=== PATIENT | female | born 1950 | race Caucasian/White ===

== ENCOUNTER → 2016-12-14 | Outpatient (CLI) | payer MEDICARE ==
--- NOTE | 2016-12-15 09:46 | MM ---
Reason for exam: screening (asymptomatic). Last mammogram was performed 2 years and 7 months ago. History: Patient is postmenopausal and is nulliparous. Took estrogen for 5 years. Physical Findings: A clinical breast exam by your physician is recommended on an annual basis and results should be correlated with mammographic findings. MG 3D Screening Mammo W/Cad Bilateral CC and MLO view(s) were taken. Prior study comparison: May 07, 2014, bilateral MG screening mammo w CAD. April 27, 2008, bilateral digital screening mammogram. The breast tissue is heterogeneously dense. This may lower the sensitivity of mammography. A 6mm asymmetry in the central retroareolar right breast on 2D/3D views possible in outer quadrant. ASSESSMENT: Incomplete: need additional imaging evaluation, BI-RAD 0 RECOMMENDATION: Special view mammogram of the right breast. If lesion persists on supplemental views, image directed ultrasound is recommended. [facility] will attempt to contact patient to return for supplemental views and ultrasound if indicated.
== END | disposition home or self-care (01) ==
LOC: RADMAMWWP 16:44
PROVIDERS: ATTEND Family Medicine
DX: Z12.31 Encounter for screening mammogram for malignant neoplasm of breast (principal)
CPT/HCPCS: 77063; G0202

== ENCOUNTER → 2016-12-20 | Outpatient (CLI) | payer MEDICARE ==
--- NOTE | 2016-12-20 11:40 | MM ---
Reason for exam: additional evaluation requested from abnormal screening. Last mammogram was performed less than 1 month ago. History: Patient is postmenopausal and is nulliparous. Took estrogen for 5 years. Physical Findings: Nurse did not find any significant physical abnormalities on exam. MG 3D Work Up W/Cad RT CC, MLO, LM, spot compression CC, and spot compression MLO view(s) were taken of the right breast. Prior study comparison: December 14, 2016, bilateral MG 3d screening mammo w/cad. May 07, 2014, bilateral MG screening mammo w CAD. The breast tissue is heterogeneously dense. This may lower the sensitivity of mammography. The previously seen abnormality appears as fibroglandular tissue. These results were verbally communicated with the patient and result sheet given to the patient on 12/20/16. ASSESSMENT: Benign, BI-RAD 2 RECOMMENDATION: Routine screening mammogram of both breasts in 1 year.
== END | disposition home or self-care (01) ==
LOC: RADMAMWWP 10:43
PROVIDERS: ATTEND Family Medicine
DX: R92.8 Other abnormal and inconclusive findings on diagnostic imaging of breast (principal)
CPT/HCPCS: G0206; G0279

== ENCOUNTER 2020-03-04 17:00 | Emergency (ER) | payer MEDICARE ==
[2020-03-04] MEDS ORDERED: KETOROLAC 15 MG/ML 1 ML VIAL IM STA (18:37)
--- NOTE | 2020-03-04 18:47 | ED ---
Fall HPI - General Source: patient Mode of arrival: wheelchair <Micaela Haley - Last Filed: 03/04/20 19:40> <Lobo Rhodes - Last Filed: 03/04/20 19:50> - General Chief Complaint: Fall Stated Complaint: Fall, back injury/left side Time Seen by Provider: 03/04/20 18:28 - History of Present Illness Initial Comments: Patient is a 69-year-old female presenting to the emergency department with complaints of left-sided back and side pain after falling about 3 hours prior to arrival. Patient states she was outside and she tripped and fell backwards into the edge of a tractor. Patient is complaining of pain in her left mid back, left side of her ribs. Patient states she has pain with movement, deep breaths. Patient denies any trouble breathing at this time, she denies hitting her head. She denies being on a blood thinner. She denies any neck pain, abdominal pain, nausea, vomiting. She denies any previous injuries to her back or previous surgeries. She denies any numbness and tingling into her lower extremities, denies bowel or bladder incontinence. She has no further complaints at this time. (Micaela Haley) - Related Data Previous Rx's Medication Instructions Recorded Lidocaine 5% Patch [Lidoderm 5% 1 patch TOPICAL DAILY #7 patch 03/04/20 Patch] Allergies Allergy/AdvReac Type Severity Reaction Status Date / Time doxycycline Allergy Unknown Verified 03/04/20 19:15 erythromycin base Allergy Unknown Verified 03/04/20 19:15 Review of Systems ROS Other: All systems not noted in ROS Statement are negative. <Micaela Haley - Last Filed: 03/04/20 19:40> ROS Other: All systems not noted in ROS Statement are negative. <Lobo Rhodes - Last Filed: 03/04/20 19:50> ROS Statement: Those systems with pertinent positive or pertinent negative responses have been documented in the HPI. Past Medical History Past Medical History: No Reported History History of Any Multi-Drug Resistant Organisms: None Reported Past Surgical History: Hysterectomy Past Psychological History: No Psychological Hx Reported Smoking Status: Never smoker Past Alcohol Use History: Daily Past Drug Use History: None Reported <Micaela Haley - Last Filed: 03/04/20 19:40> General Exam Limitations: no limitations <Micaela Haley - Last Filed: 03/04/20 19:40> - General Exam Comments Initial Comments: GENERAL: Patient is well-developed and well-nourished. Patient is nontoxic and in no acute distress. HEAD: Atraumatic, normocephalic. EYES: Pupils equal round and reactive to light, extraocular movements intact, sclera anicteric, conjunctiva are normal. Eyelids were unremarkable. ENT: TMs normal, nares patent, oropharynx clear without exudates. Moist mucous membranes. NECK: Normal range of motion, supple without lymphadenopathy or JVD. LUNGS: Unlabored respirations. Breath sounds clear to auscultation bilaterally and equal. No wheezes rales or rhonchi. HEART: Regular rate and rhythm without murmurs, rubs or gallops. ABDOMEN: Soft, nontender, normoactive bowel sounds. No guarding, no rebound. No masses appreciated. : Deferred MUSCULOSKELETAL: Mild pain with palpation of the left lower thoracic lumbar area as well as the left lateral ribs. There is no obvious swelling or deformity or bruising noted. Normal extremities with adequate strength and normal range of motion, no pitting or edema. No clubbing or cyanosis. NEUROLOGICAL: Patient is alert and oriented x 3. Motor and sensory are also intact. Cranial nerves II through XII grossly intact. Symmetrical smile. Normal speech, normal gait. PSYCH: Normal mood, normal affect. SKIN: Warm, Dry, normal turgor, no rashes or lesions noted. (Micaela Haley) Course <Lobo Rhodes - Last Filed: 03/04/20 19:50> Vital Signs 03/04/20 03/04/20 17:03 19:43 Temperature 98.1 F 98 F Pulse Rate 58 L 69 Respiratory 18 17 Rate Blood Pressure 139/58 125/72 O2 Sat by Pulse 100 98 Oximetry - Reevaluation(s) Reevaluation #1: 03/04/20 19:45 pA supervision: I proceeded [id number] evaluation the patient. She did fall she was loading wood hit the side of a porch. Complains of leftposterior late ral rib pain. She does demonstrate evidence of rib fractures on the left no evidence of pneumothorax. We did discuss return parameters. (Lobo Rhodes) Medical Decision Making <Micaela Haley - Last Filed: 03/04/20 19:40> - Medical Decision Making Patient is a 69-year-old female here for left low back, left lateral rib pain after falling about 3 hours prior to arrival. Her vital signs are stable. She denies hitting her head, she is not on blood thinners. Her only complaint is this left low back and rib pain. (Micaela Haley) Disposition Is patient prescribed a controlled substance at d/c from ED?: No <Micaela Haley - Last Filed: 03/04/20 19:40> <Lobo Rhodes - Last Filed: 03/04/20 19:50> Clinical Impression: Fall, Multiple fractures of ribs, left side, initial encounter for closed fracture Disposition: HOME SELF-CARE Condition: Stable Instructions (If sedation given, give patient instructions): Rib Fracture (ED) Additional Instructions: Please return to the Emergency Department if symptoms worsen or any other concerns. May alternate between Tylenol and ibuprofen for discomfort. May also applied topical Lidoderm patches for pain. Use incentive spirometer as instructed. Follow-up with PCP. Prescriptions: Lidocaine 5% Patch [Lidoderm 5% Patch] 1 patch TOPICAL DAILY #7 patch Referrals: Urmila Moody DO [Primary Care Provider] - 1-2 days
--- NOTE | 2020-03-04 19:17 | XR ---
EXAMINATION TYPE: XR ribs LT w pa chest xray DATE OF EXAM: 03/04/2020 COMPARISON: NONE HISTORY: Rib pain TECHNIQUE: 5 views FINDINGS: Heart is normal. Lungs are clear of infiltrate. There are left side rib fractures involving left posterior lateral eighth and ninth ribs. There is slight blunting left costophrenic angle. The re is no heart failure. There is no pneumothorax. IMPRESSION: Displaced acute fractures of the left side ribs with small pleural effusion. No pneumotho rax.
[2020-03-04] MEDS ORDERED: LIDOCAINE 5% PATCH TOPICAL STA (19:40)
[2020-03-04 19:43] VITALS: BP 125/72; PULSE 69; RESP 17; TEMP 98
[2020-03-04] MEDS ORDERED: HYDROcodone/APAP 5-325MG 1 EACH TAB PO STA (19:55)
== END 2020-03-04 20:00 | disposition home or self-care (01) ==
LOC: EC 17:00
DX: S22.42XA Multiple fractures of ribs, left side, initial encounter for closed fracture (principal); W01.0XXA Fall on same level from slipping, tripping and stumbling without subsequent striking against object, initial encounter; Y92.009 Unspecified place in unspecified non-institutional (private) residence as the place of occurrence of the external cause; Z88.1 Allergy status to other antibiotic agents
CPT/HCPCS: 71101; 99283; 96372; J1885

== ENCOUNTER → 2020-04-19 | Outpatient (CLI) | payer MEDICARE ==
--- NOTE | 2020-04-20 09:48 | MM ---
Reason for exam: screening (asymptomatic). Last mammogram was performed 3 years and 4 months ago. History: Patient is postmenopausal and is nulliparous. Took estrogen for 5 years. Physical Findings: A clinical breast exam by your physician is recommended on an annual basis and results should be correlated with mammographic findings. MG 3D Screening Mammo W/Cad Bilateral CC and MLO view(s) were taken. Prior study comparison: December 20, 2016, right breast MG 3d work up w/cad RT. December 14, 2016, bilateral MG 3d screening mammo w/cad. The breast tissue is heterogeneously dense. This may lower the sensitivity of mammography. There is no discrete abnormality. ASSESSMENT: Negative, BI-RAD 1 RECOMMENDATION: Routine screening mammogram of both breasts in 1 year.
== END | disposition home or self-care (01) ==
LOC: RADMAMWWP 10:10
PROVIDERS: ATTEND Family Medicine
DX: Z12.31 Encounter for screening mammogram for malignant neoplasm of breast (principal)
CPT/HCPCS: 77063; 77067

== ENCOUNTER 2021-08-05 10:54 | Emergency (ER) | payer MEDICARE ==
[2021-08-05 11:22] VITALS: BP 143/73; PULSE 74; RESP 18; TEMP 99
[2021-08-05 12:09] LABS: Appearance,Urine Clear (Clear); Bilirubin,Urine Negative (Negative); Blood,Urine Small (Negative); Color,Urine Colorless; Glucose,Urine (UA) Negative (Negative); Ketones,Urine Negative (Negative); Leukocyte Esterase,Urine Negative (Negative); Nitrite,Urine Negative (Negative); PH, Urine 6.5 (5.0-8.0); Protein,Urine Negative (Negative); RBC,Urine 1 /hpf (0-5); Specific Gravity,Urine 1.003 (1.001-1.035); Squamous Epithelial Cell,Urine <1 /hpf (0-4); Urobilinogen,Urine <2.0 mg/dL (<2.0); WBC,Urine 1 /hpf (0-5)
[2021-08-05] MEDS ORDERED: ONDANSETRON 4 MG/2 ML VIAL IVP STA (12:51)
[2021-08-05 13:38] LABS: Basophils % (A) 1 %; Eosinophils # (A) 0.1 k/uL (0-0.7); Eosinophils % (A) 2 %; HCT 40.4 % (34.0-46.0); HGB 13.3 gm/dL (11.4-16.0); Lymphocytes # (A) 1.1 k/uL (1.0-4.8); Lymphocytes % (A) 20 %; MCH 29.8 pg (25.0-35.0); MCHC 32.9 g/dL (31.0-37.0); MCV 90.5 fL (80.0-100.0); Mean Platelet Volume 7.8; Monocytes # (A) 0.2 k/uL (0-1.0); Monocytes % (A) 3 %; Neutrophils # (A) 3.9 k/uL (1.3-7.7); Neutrophils % (A) 72 %; Platelet Count 197 k/uL (150-450); RBC 4.46 m/uL (3.80-5.40); RDW 12.8 % (11.5-15.5); WBC 5.5 k/uL (3.8-10.6)
[2021-08-05 13:51] LABS: ALT 248 U/L (4-34); AST 294 U/L (14-36); African American GFR (CKD) >90 (>60 ml/min/1.73 sqM); Albumin 4.3 g/dL (3.5-5.0); Alkaline Phosphatase 109 U/L (38-126); Anion Gap 5 mmol/L; Blood Urea Nitrogen 12 mg/dL (7-17); Calcium 9.2 mg/dL (8.4-10.2); Carbon Dioxide 27 mmol/L (22-30); Chloride 105 mmol/L (98-107); Glucose 88 mg/dL (74-99); Non-African American GFR(CKD) >90 (>60 ml/min/1.73 sqM); Potassium 4.3 mmol/L (3.5-5.1); Sodium 137 mmol/L (137-145); Total Bilirubin 0.6 mg/dL (0.2-1.3); Total Protein 6.9 g/dL (6.3-8.2)
--- NOTE | 2021-08-05 14:01 | US ---
EXAMINATION TYPE: US abdomen limited DATE OF EXAM: 08/05/2021 COMPARISON: NONE CLINICAL HISTORY: right upper quadrant pain. Pt states RUQ pain that radiates to back EXAM MEASUREMENTS: Liver Length: 13.7 cm Gallbladder Wall: 0.4 cm CBD: 0.3 cm Right Kidney: 9.1 x 3.5 x 4.1 cm Pancreas: wnl Liver: wnl Gallbladder: Multiple gallstones with thickened wall Evidence for sonographic Ordaz's sign: No CBD: wnl Right Kidney: wnl IMPRESSION: Cholelithiasis with gallbladder wall thickening. Correlate for cholecystitis.
[2021-08-05 14:15] LABS: Lipase 15888 U/L (23-300)
[2021-08-05] MEDS ORDERED: cefTRIAXone IN SWFI 1,000 MG/10 ML SYRINGE IVP STA (14:39)
--- NOTE | 2021-08-05 14:39 | CT ---
EXAMINATION TYPE: CT abdomen pelvis w con DATE OF EXAM: 08/05/2021 COMPARISON: None HISTORY: Abdominal pain with nausea. CT DLP: 519.6 mGycm Automated exposure control for dose reduction was used. TECHNIQUE: Helical acquisition of images was performed from the lung bases through the pelvis. CONTRAST: Performed without Oral Contrast and with IV Contrast, patient injected with 100 mL of Isovue 300. FINDINGS: There is mild interstitial scarring in the lung bases but no suspicious mass or pleural effusion. There is enhancement of the gallbladder wall and marked pericholecystic fluid. The findings are consi stent with acute cholecystitis. There is dilatation of the extrahepatic biliary duct. There is a small simple hepatic cysts in the right lobe of the liver but no suspicious liver mass or organomegaly. There is no focal mass within the pancreas spleen or adrenal glands. The kidneys excrete contrast promptly and symmetrically is no solid renal mass or hydronephrosis. The re is no retroperitoneal adenopathy or hemorrhage in the caliber of the abdominal aorta is normal. The bowel loops are normal in caliber and there is no evidence of dilatation or obstruction. No inflammatory changes are identified in the bowel wall or mesentery. There is no free intraperitoneal air or fluid. There is no pelvic mass, free fluid, abscess or adenopathy. The osseous structures are intact. IMPRESSION: Findings consistent with acute cholecystitis as described above.
[2021-08-05] MEDS ORDERED: metroNIDAZOLE-NS PMX 500 MG in SALINE 1 100ML.BAG IVPB STA (14:40)
--- NOTE | 2021-08-05 15:42 | ED ---
Abdominal Pain HPI - General Chief Complaint: Abdominal Pain Stated Complaint: abd pain, nausea Time Seen by Provider: 08/05/21 11:15 Source: patient Mode of arrival: ambulatory Limitations: no limitations - History of Present Illness Initial Comments: 71-year-old previously healthy female presents to the emergency department with several months worth of epigastric abdominal pain. Patient reports to right upper quadrant pain epigastric pain and bilateral flank pain. States that she will have intermittent episodes that is usually attributed to what she eats. She had been previously seen by her primary care doctor and Dr. Hernandez, GI specialist in [place]. She had a CT and an ultrasound of her abdomen performed in May. She was told that she had gallstones however there is no immediate need for intervention. She is to follow up for an ultrasound on the . Reports that over the past several days she has had worsening pain with nausea. No vomiting episodes. Did not take any medications at home for her symptoms. No associated chest pain or shortness of breath. No fevers. No sick contacts with similar symptoms. No history of peptic ulcer disease. Denies frequent consumption of alcohol or use of NSAIDs. Admits to loose stools. No black or bloody stools. No changes in her urination. Patient has a history of partial hysterectomy in the 80s. No abnormal vaginal bleeding or discharge. No other alleviating, precipitating or modifying factors - Related Data Home Medications Medication Instructions Recorded Confirmed Omeprazole [PriLOSEC] 40 mg PO DAILY 08/05/21 08/05/21 Allergies Allergy/AdvReac Type Severity Reaction Status Date / Time doxycycline Allergy Unknown Verified 08/05/21 15:28 erythromycin base Allergy Unknown Verified 08/05/21 15:28 Review of Systems ROS Statement: Those systems with pertinent positive or pertinent negative responses have been documented in the HPI. ROS Other: All systems not noted in ROS Statement are negative. Past Medical History Past Medical History: No Reported History History of Any Multi-Drug Resistant Organisms: None Reported Past Surgical History: Hysterectomy Past Psychological History: No Psychological Hx Reported Smoking Status: Never smoker Past Alcohol Use History: Daily Past Drug Use History: None Reported General Exam Limitations: no limitations General appearance: alert, in no apparent distress Head exam: Present: atraumatic, normocephalic, normal inspection Eye exam: Present: normal appearance, PERRL, EOMI. Absent: scleral icterus, conjunctival injection, periorbital swelling ENT exam: Present: normal exam, mucous membranes moist Neck exam: Present: normal inspection. Absent: tenderness, meningismus, lymphadenopathy Respiratory exam: Present: normal lung sounds bilaterally. Absent: respiratory distress, wheezes, rales, rhonchi, stridor Cardiovascular Exam: Present: regular rate, normal rhythm, normal heart sounds. Absent: systolic murmur, diastolic murmur, rubs, gallop, clicks GI/Abdominal exam: Present: soft, tenderness (epigastric tenderness), normal bowel sounds. Absent: distended, guarding, rebound, rigid Extremities exam: Present: normal inspection, full ROM, normal capillary refill. Absent: tenderness, pedal edema, joint swelling, calf tenderness Back exam: Present: normal inspection Neurological exam: Present: alert, oriented X3, CN II-XII intact Psychiatric exam: Present: normal affect, normal mood Skin exam: Present: warm, dry, intact, normal color. Absent: rash Course Vital Signs 08/05/21 11:18 Temperature 99 F Pulse Rate 74 Respiratory 18 Rate Blood Pressure 143/73 O2 Sat by Pulse 98 Oximetry Medical Decision Making - Medical Decision Making Upon arrival patient is placed into room 14. A thorough history and physical exam is performed. IV access is established. Patient is offered something for pain control however refuses. She is given 4 mg of Zofran for nausea. Laboratory studies are conducted and reviewed. Patient has a AST of 294, ALT of 248 and lipase is 15,888. Urinalysis is positive for small blood. Ultrasound of the right upper quadrant is performed which demonstrates skull bladder wall thickening with a measurement of 0.4 cm. There are multiple gallstones. Impre ssion is cholelithiasis with color wall thickening. Correlation for cholecystitis. Rocephin and Flagyl are ordered. Patient is additionally sent for a CT of her abdomen and pelvis which demonstrates marked pericholecystic fluid and gallbladder wall thickening. I did call and speak with Dr. Campbell, our general surgeon [employer]. Denies admission for the patient, requesting facility with GI capabilities. Patient did agree to transfer. I called and spoke with Dr. Diallo at [facility] who agreed to accept transfer of the patient. She was transferred in hemodynamically stable condition - Lab Data Result diagrams: 08/05/21 13:28 04/15/22 13:28 Lab Results 08/05/21 08/05/21 08/05/21 Range/Units 11:23 12:51 13:28 WBC 5.5 (3.8-10.6) k/uL RBC 4.46 (3.80-5.40) m/uL Hgb 13.3 (11.4-16.0) gm/dL Hct 40.4 (34.0-46.0) % MCV 90.5 (80.0-100.0) fL MCH 29.8 (25.0-35.0) pg MCHC 32.9 (31.0-37.0) g/dL RDW 12.8 (11.5-15.5) % Plt Count 197 (150-450) k/uL MPV 7.8 Neutrophils % 72 % Lymphocytes % 20 % Monocytes % 3 % Eosinophils % 2 % Basophils % 1 % Neutrophils # 3.9 (1.3-7.7) k/uL Lymphocytes # 1.1 (1.0-4.8) k/uL Monocytes # 0.2 (0-1.0) k/uL Eosinophils # 0.1 (0-0.7) k/uL Basophils # 0.0 (0-0.2) k/uL Sodium (137-145) mmol/L Potassium (3.5-5.1) mmol/L Chloride (98-107) mmol/L Carbon Dioxide (22-30) mmol/L Anion Gap mmol/L BUN (7-17) mg/dL Creatinine (0.52-1.04) mg/dL Est GFR (CKD-EPI)AfAm (>60 ml/min/1.73 sqM) Est GFR (CKD-EPI)NonAf (>60 ml/min/1.73 sqM) Glucose (74-99) mg/dL Plasma Lactic Acid [place] 1.0 (0.7-2.0) mmol/L Calcium (8.4-10.2) mg/dL Total Bilirubin (0.2-1.3) mg/dL AST (14-36) U/L ALT (4-34) U/L Alkaline Phosphatase (38-126) U/L Total Protein (6.3-8.2) g/dL Albumin (3.5-5.0) g/dL Lipase (23-300) U/L Urine Color Colorless Urine Appearance Clear (Clear) Urine pH 6.5 (5.0-8.0) Ur Specific [place] 1.003 (1.001-1.035) Urine Protein Negative (Negative) Urine Glucose (UA) Negative (Negative) Urine Ketones Negative (Negative) Urine Blood Small H (Negative) Urine Nitrite Negative (Negative) Urine Bilirubin Negative (Negative) Urine Urobilinogen <2.0 (<2.0) mg/dL Ur Leukocyte Esterase Negative (Negative) Urine RBC 1 (0-5) /hpf Urine WBC 1 (0-5) /hpf Ur Squamous Epith Cells <1 (0-4) /hpf 08/05/21 Range/Units 13:28 WBC (3.8-10.6) k/uL RBC (3.80-5.40) m/uL Hgb (11.4-16.0) gm/dL Hct (34.0-46.0) % MCV (80.0-100.0) fL MCH (25.0-35.0) pg MCHC (31.0-37.0) g/dL RDW (11.5-15.5) % Plt Count (150-450) k/uL MPV Neutrophils % % Lymphocytes % % Monocytes % % Eosinophils % % Basophils % % Neutrophils # (1.3-7.7) k/uL Lymphocytes # (1.0-4.8) k/uL Monocytes # (0-1.0) k/uL Eosinophils # (0-0.7) k/uL Basophils # (0-0.2) k/uL Sodium 137 (137-145) mmol/L Potassium 4.3 (3.5-5.1) mmol/L Chloride 105 (98-107) mmol/L Carbon Dioxide 27 (22-30) mmol/L Anion Gap 5 mmol/L BUN 12 (7-17) mg/dL Creatinine 0.57 (0.52-1.04) mg/dL Est GFR (CKD-EPI)AfAm >90 (>60 ml/min/1.73 sqM) Est GFR (CKD-EPI)NonAf >90 (>60 ml/min/1.73 sqM) Glucose 88 (74-99) mg/dL Plasma Lactic Acid [place] (0.7-2.0) mmol/L Calcium 9.2 (8.4-10.2) mg/dL Total Bilirubin 0.6 (0.2-1.3) mg/dL AST 294 H (14-36) U/L ALT 248 H (4-34) U/L Alkaline Phosphatase 109 (38-126) U/L Total Protein 6.9 (6.3-8.2) g/dL Albumin 4.3 (3.5-5.0) g/dL Lipase 26008 H (23-300) U/L Urine Color Urine Appearance (Clear) Urine pH (5.0-8.0) Ur Specific [place] (1.001-1.035) Urine Protein (Negative) Urine Glucose (UA) (Negative) Urine Ketones (Negative) Urine Blood (Negative) Urine Nitrite (Negative) Urine Bilirubin (Negative) Urine Urobilinogen (<2.0) mg/dL Ur Leukocyte Esterase (Negative) Urine RBC (0-5) /hpf Urine WBC (0-5) /hpf Ur Squamous Epith Cells (0-4) /hpf - EKG Data EKG Comments: EKG demonstrates sinus rhythm with a rate of 68. WV interval 174. QRS 69. QTC 416. No acute ST segment elevations or depressions concerning for ischemic changes Disposition Clinical Impression: Gallstone pancreatitis, Elevated liver enzymes, Cholecystitis Disposition: OTHER INSTITUTION NOT DEFINED Condition: Stable Is patient prescribed a controlled substance at d/c from ED?: No Referrals: rUmila Moody DO [Primary Care Provider] - 1-2 days - Out of Hospital Transfer - Req. Specs Out of Hospital Transfer - Requested Specifics: Other Emergency Center ([facility])
== END 2021-08-05 17:29 | disposition other institution (70) ==
LOC: EC 10:54
DX: K85.10 Biliary acute pancreatitis without necrosis or infection (principal); K81.9 Cholecystitis, unspecified; R74.8 Abnormal levels of other serum enzymes; Z88.1 Allergy status to other antibiotic agents
CPT/HCPCS: 36415; 93005; 80053; 83605; 83690; 85025; 81001; 76705; 74177; 99284; 96365; 96366; 96375; J2405; J0696; Q9967; 96372

== ENCOUNTER → 2022-04-24 | Outpatient (CLI) | payer MEDICARE ==
--- NOTE | 2022-04-24 12:36 | BD ---
EXAMINATION TYPE: Axial Bone Density DATE OF EXAM: 04/24/2022 COMPARISON: NEW TO [facility].....FOR DEXA STUDY CLINICAL HISTORY: 72 years year old Female. ICD-10 CODE: M89.9 DISORDER OF BONE Height: 59.4 Weight: 108 FRAX RISK QUESTIONS: Family History (Parent hip fracture): YES History of Fracture in Adulthood: YES RISK FACTORS HISTORY OF: HX OF RIB FXs AN ADULT, Family History of Osteoporosis: YES, MOTHER AND SISTERS, FATHER WITH HIP FX Postmenopausal woman: YES, AT AGE 49, PARTIAL HX EARLIER IN LIFE Hyperparathyroidism: NO Adrenal Insufficiency: NO MEDICATIONS: Additional Medications: ZOLOFT, VIT D AND CALCIUM, Additional History: NOTHING ADDITIONAL TO NOTE HERE EXAM MEASUREMENTS: Bone mineral densitometry was performed using the [employer] System. Bone mineral density as measured about the Lumbar spine is: ----- L1-L4(G/cm2): 0.925 T Score Values are as follows: ----- L1: -2.6 ----- L2: -2.5 ----- L3: -1.8 ----- L4: -1.9 ----- L1-L4: -2.1 Bone mineral density NEW TO [facility] Bone mineral density about the R hip (g/cm2): 0.845 Bone mineral density about the L hip (g/cm2): 0.833 T Score values are as follows: -----R Neck: -2.1 -----L Neck: -2.2 -----R Total: -1.3 -----L Total: -1.4 Bone mineral density NEW TO [facility] FRAX%s: The graph provided illustrates a 31.5%nce for a major osteoporotic fx and a 15.6%nce for the hips probability for fx in 10 years time. IMPRESSION: Osteoporosis (T Score less than -2.5). There is increased fracture risk and therapy is usually indicated based on age. Re-Screen 1-2 years. NOTE: T-SCORE=SD OF THE YOUNG ADULT MEAN.
--- NOTE | 2022-04-25 08:38 | MM ---
Reason for Exam: Screening (asymptomatic). Last mammogram was performed 2 year(s) and 1 month(s) ago. Patient History: Menarche at age 14. Patient has no children. Hysterectomy at age 37. Postmenopausal. Patient used Estrogen for 5 years. Risk Values: Sunshine 5 year model risk: 1.8%. NCI Lifetime model risk: 4.4%. Prior Study Comparison: 12/14/2016 Bilateral Screening Mammogram, [facility]. 12/20/2016 Right Diagnostic Mammogram, [facility]. 04/19/2020 Bilateral Screening Mammogram, [facility]. Tissue Density: The breast tissue is heterogeneously dense. This may lower the sensitivity of mammography. Findings: Analyzed By CAD. There is no suspicious group of microcalcifications or new suspicious mass in either breast. Overall Assessment: Negative, BI-RAD 1 Management: Screening Mammogram of both breasts in 1 year. A clinical breast exam by your physician is recommended on an annual basis and results should be correlated with mammographic findings. [facility] will attempt to contact patient to return for supplemental views and ultrasound if indicated. Electronically signed and approved by: Lobo Worley DO
== END | disposition home or self-care (01) ==
LOC: RADMAMWWP 10:25
PROVIDERS: ATTEND Family Medicine
DX: Z12.31 Encounter for screening mammogram for malignant neoplasm of breast (principal); M81.0 Age-related osteoporosis without current pathological fracture; M85.89 Other specified disorders of bone density and structure, multiple sites; Z78.0 Asymptomatic menopausal state
CPT/HCPCS: 77063; 77067; 77080

== ENCOUNTER → 2024-07-17 | Outpatient (CLI) | payer MEDICARE ==
[2024-07-17 11:55] LABS: INR 0.9 (<1.2); Partial Thromboplastin Time 22.6 sec (22.0-30.0); Prothrombin Time 10.6 sec (10.0-12.5)
--- NOTE | 2024-07-17 12:09 | XR ---
EXAMINATION TYPE: XR chest 2V DATE OF EXAM: 07/17/2024 12:01 PM COMPARISON: 03/04/2020 TECHNIQUE: XR chest 2V Frontal and lateral views of the chest. CLINICAL INDICATION:Female, 74 years old with history of PRE SURGICAL TESTING; FINDINGS: Lungs/Pleura: There is no evidence of pleural effusion, focal consolidation, or pneumothorax. Right apical pleural thickening. Hyperinflation. Pulmonary vascularity: Unremarkable. Heart/mediastinum: Cardiomediastinal silhouette is unremarkable. Musculoskeletal: No acute osseous pathology. Remote healed left-sided rib fractures. Chronic appearin g anterior wedge compression deformities of the lower thoracic spine with increased kyphosis. IMPRESSION: 1. No acute cardiopulmonary disease/process. 2. COPD changes. 3. Chronic appearing anterior wedge compression deformities of the lower thoracic spine. Correlate w ith point tenderness. [facility], , 07/17/2024 12:07 PM
[2024-07-17 14:46] LABS: Basophils # (A) 0.04 X 10*3/uL (0.00-0.10); Basophils % (A) 0.8 %; Eosinophils % (A) 1.9 %; HCT 38.5 % (37.2-46.3); HGB 12.2 g/dL (12.0-15.0); Lymphocytes # (A) 1.51 X 10*3/uL (0.90-5.00); Lymphocytes % (A) 28.8 %; MCHC 31.7 g/dL (32.0-37.0); MCV 91.4 FL (80.0-97.0); Monocytes # (A) 0.33 X 10*3/uL (0.20-1.00); Monocytes % (A) 6.3 %; NRBC Per 100 WBC 0 X 10*3/uL (0.00-0.01); Neutrophils # (A) 3.24 X 10*3/uL (1.80-7.70); Neutrophils % (A) 61.8 %; Platelet Count 227 X 10*3/uL (140-440); RBC 4.21 X 10*6/uL (4.10-5.20); RDW 12.8 % (11.5-14.5); WBC 5.24 X 10*3/uL (4.50-10.00)
[2024-07-17 14:50] LABS: BUN/Creat Ratio 28.17 Ratio (12.00-20.00); Blood Urea Nitrogen 16.9 mg/dL (9.0-27.0); Calcium 9.5 mg/dL (8.7-10.3); Carbon Dioxide 27.7 mmol/L (21.6-31.8); Chloride 105 mmol/L (96-109); Glucose 104 mg/dL (70-110); Potassium 4.2 mmol/L (3.5-5.5); Sodium 141 mmol/L (135-145)
[2024-07-17 15:27] LABS: Appearance,Urine Clear (Clear); Bilirubin,Urine Negative (Negative); Blood,Urine Moderate (Negative); Color,Urine Yellow (Yellow); Ketones,Urine Negative (Negative); Nitrite,Urine Negative (Negative); PH, Urine 5.5; Specific Gravity,Urine 1.016 (1.001-1.030); Urobilinogen,Urine 0.2 E.U./DL
[2024-07-17 17:40] LABS: Bacteria,Urine None Seen (None Seen)
== END | disposition home or self-care (01) ==
LOC: LABPAT 11:11
PROVIDERS: ATTEND Orthopaedic Surgery Orthopaedic Surgery of the Spine
DX: Z01.818 Encounter for other preprocedural examination (principal); Z22.322 Carrier or suspected carrier of Methicillin resistant Staphylococcus aureus; S22.080A Wedge compression fracture of T11-T12 vertebra, initial encounter for closed fracture
CPT/HCPCS: 36415; 71046; 80048; 81001; 85025; 85610; 85730; 87070; 93005

== ENCOUNTER 2024-08-11 08:19 | Day surgery (SDC) | payer MEDICARE ==
[2024-08-11] MEDS ORDERED: fentaNYL (PF) 50 MCG/ML 2 ML AMP IVP PRN (08:28)
[2024-08-11] MEDS ORDERED: LIDOCAINE 1% (10MG/ML) FOR IV START INTRADERMA PRN (08:28)
[2024-08-11] MEDS ORDERED: HYDROmorphone 0.5 MG/0.5 ML SYRINGE IVP PRN ×2 (08:28→11:46)
[2024-08-11] MEDS ORDERED: MIDAZOLAM 2 MG/2 ML VIAL IV PRN (08:28)
[2024-08-11] MEDS: IV FLUID CONTINUATION 1,000 ML IV ONE (08:32)
[2024-08-11] MEDS: LACTATED RINGERS 1,000 ML IV SCH (08:49)
[2024-08-11] MEDS: ONDANSETRON 4 MG/2 ML VIAL IVP ONE (08:49)
[2024-08-11] MEDS: DEXAMETHASONE SOD PHOSPHATE 4 MG/ML 1 ML VIAL IV ONE (08:49)
[2024-08-11] MEDS ORDERED: GLYCOPYRROLATE 0.2 MG/ML 2 ML VIAL ONE (10:30)
[2024-08-11] MEDS ORDERED: KETOROLAC 15 MG/ML 1 ML VIAL ONE (10:30)
[2024-08-11] MEDS ORDERED: LIDOCAINE 1% INJ 10MG/ML (20 ML MDV) ONE (10:30)
[2024-08-11] MEDS ORDERED: PROPOFOL 10 MG/ML 20 ML VIAL IV ONE (10:30)
[2024-08-11] MEDS ORDERED: SUCCINYLCHOLINE CHLORIDE 200 MG/10 ML VIAL IV ONE (10:30)
[2024-08-11] MEDS ORDERED: fentaNYL (PF) 50 MCG/ML 2 ML AMP ONE (10:30)
[2024-08-11] MEDS ORDERED: PHENYLEPHRINE-0.9% NACL SYG 1,000 MCG/10 ML SYRINGE ONE (10:30)
[2024-08-11] MEDS: LIDOCAINE 2%-EPI 1:100,000 20 ML VIAL SQ ONE (10:57)
[2024-08-11] MEDS: BUPIVACAINE (PF) 0.5% 30 ML VIAL SQ ONE (10:57)
[2024-08-11] MEDS: IOPAMIDOL M200 10 ML VIAL INJ ONE (10:57)
[2024-08-11] MEDS: LACTATED RINGERS 1,000 ML IV ONE (11:22)
[2024-08-11 11:40] VITALS: TEMP 96.9
--- NOTE | 2024-08-11 11:45 | XR ---
EXAMINATION TYPE: XR thoracic spine 2V, FL guidance operating room Intraoperative/procedural fluorosc opic services were provided. CLINICAL INDICATION:Female, 74 years old with history of KYPHOPLASTY; , [facility] FINDINGS: Postsurgical changes from kyphoplasty of the thoracic spine at 2 adjacent levels. No radiographic snehal dence for complication. Total fluoroscopy time is 32.0 seconds. DAP: 1.8386 Gycm2 Please see the operative/procedural note for further details. [facility], , 08/11/2024 11:43 AM
[2024-08-11] MEDS ORDERED: BENZOCAINE/MENTHOL LOZENG 1 EACH LOZENGE MUCOUS MEM PRN (11:46)
[2024-08-11] MEDS ORDERED: ONDANSETRON 4 MG/2 ML VIAL IVP PRN (11:47)
[2024-08-11] MEDS ORDERED: ACETAMINOPHEN TAB 500 MG TAB PO PRN (11:47)
[2024-08-11] MEDS ORDERED: CYCLOBENZAPRINE 5 MG TAB PO PRN (11:47)
[2024-08-11] MEDS ORDERED: traMADol 50 MG TAB PO PRN (11:47)
--- NOTE | 2024-08-11 11:55 | P.OP ---
Date of Procedure: 08/11/24 Preoperative Diagnosis: Subacute traumatic T10 and T11 vertebral compression fractures Thoracic back pain Postoperative Diagnosis: Same Anesthesia: GETA Pathology: other (T10 and T11 vertebral body biopsy sent separately to patholog y) Condition: stable Disposition: PACU Description of Procedure: BRIEF OPERATIVE NOTE Preoperative Diagnosis: Subacute traumatic T10 and T11 vertebral compression fractures Thoracic back pain Postoperative Diagnosis: Same Procedure: Kyphoplasty T10 and T11 Vertebral body biopsy T10 and T11 Use of biplanar fluoroscopic guidance Surgeon: Dr. Singh Head Of Ict: Niru RAINEY who is present throughout the entire the case for assistance during dissection, exposure, visualization, and all crucial elements of the case as well as closure. Anesthesia: General anesthesia Estimated blood loss: Less than 10 mL Specimen: Vertebral body biopsy of T10 and T11 sent to pathology in formalin Complications: None apparent Components implanted: Bone cement Disposition: To recovery room in good stable condition. OPERATIVE INDICATIONS The patient has been having issues in their back ever since sustaining an injury in May. She had acute pain at her thoracolumbar junction was found to have evidence of new compression fractures at T10 and T11 which correlated well with her back pain. We started her with using a brace but she did not have good tolerance of this and was having persistent pain and significant debility. The patient has been through conservative treatment. They attempted conservative care with bracing however they're not having any benefit despite brace use. They continue to have significant pain and debility due to their fracture. We discussed various treatment options including surgery, and the patient wishes to proceed with surgery We discussed the risk, patient's alternatives and benefits of surgery including but not limited to, risk of bleeding risk of infection, risk of need for further surgery, risk of decreased, loss of motion, loss of function, cement extravasation, nerve damage, paralysis, heart attack, blindness and . OPERATIVE SUMMARY After discussing all the risks, patient alternatives and benefits at length, the patient elected to proceed with surgical intervention, signed informed consent, and presented for their procedure. The patient was seen and examined in the preoperative holding area and the surgical site was marked. The patient was given antibiotics and brought to the operating room. The patient was sedated and intubated by anesthesia in standard fashion. The patient was positioned on to the operating room table in a prone position on the appropriate well-padded and well molded bilateral chest rolls. We were careful to pad any bony prominences and pressure points. We were careful to maintain the patient's cervical spine and good neutral alignment and position throughout. We used 2 C-arm machines to establish biplanar fluoroscopic guidance in AP and lateral positions to visualize appropriately at T10 and T11. We were able to localize the fractures appropriately. The patient was prepped and draped in a normal standard fashion. An appropriate timeout and keystone protocol performed. We were able to proceed with the surgery. The local wound area was infiltrated with local anesthetic. An incision was made over the lateral aspect of the pedicle over the appropriate levels with a small 2 mm stab incision on the left over T10 and T11 pedicles. Intraoperative fluoroscopy was taken which showed a marker at the appropriate level. With the appropriate level positively confirmed, I was able to position a sharp trocar over the lateral aspect of the pedicle. At each level I similarly was able to approach and was able to advance the trocar into the pedicle and into the posterior aspect of vertebral body being careful to avoid penetration cephalad caudad or medially. The trocar was placed appropriately into the posterior aspect of vertebral body at the appropriate levels. This was confirmed with C-arm guidance. With the trocar intact I was then able to take a bone biopsy with a biopsy punch or a bony drill. The biopsy specimen was passed off to be sent to pathology in formalin. I was then able to place the kyphoplasty balloon within the vertebral body. The position was checked on C-arm. I was able to inflate the balloon under low pressure and visualization with C-arm. The balloon was well enclosed within the vertebral body. The cement was prepared. With the cement at appropriate working condition the balloons were deflated and removed. I was able to place bony cement with trocar with the cement delivery device under low pressure. It had good fill within the vertebral body. There is no evidence of any extravasation of the cement posteriorly toward the canal. The cement was well contained at the appropriate levels. There was some small extravasation from the T11 vertebrae cephalad to the disc space but it was well-contained. I was able to get approximately 5 cc of cement within T10 and 3 and half cc within T11. The cement was allowed to cure appropriately. The trochars removed and final images were taken on C-arm. This showed the cement at the appropriate levels. We were able to proceed with closure. The wound was cleaned and dried and dressed with the appropriate dressing. The drapes were broken down. The patient was gently rolled back onto their hospital bed being careful to maintain their cervical spine and good neutral alignment and position. They were woken up by anesthesia, extubated, and brought to the recovery room in good stable condition. The patient will be admitted to the hospital for observation and for appropriate postoperative care, medical management and monitoring. We will continue to follow them closely about the postoperative course.
[2024-08-11] MEDS ORDERED: SODIUM CHLORIDE 0.9% 1,000 ML IV SCH (12:00)
[2024-08-11 12:20] VITALS: PULSE 74; RESP 16
[2024-08-11 12:30] VITALS: BP 137/71
== END 2024-08-11 13:12 | disposition home or self-care (01) ==
LOC: OR 08:19
PROVIDERS: ATTEND Orthopaedic Surgery Orthopaedic Surgery of the Spine
DX: S22.070A Wedge compression fracture of T9-T10 vertebra, initial encounter for closed fracture (principal); S22.080A Wedge compression fracture of T11-T12 vertebra, initial encounter for closed fracture; Z79.899 Other long term (current) drug therapy; Z88.1 Allergy status to other antibiotic agents; W00.0XXA Fall on same level due to ice and snow, initial encounter
CPT/HCPCS: 22513; 22515; 88307; 88311; 72070; C1713; J0330; J1100; J2405; J0690; J2003; J3010; J1885; J2704; Q9966; J2371; J0665; J1596

== ENCOUNTER → 2024-09-08 | Outpatient (CLI) | payer MEDICARE ==
--- NOTE | 2024-09-08 15:35 | MM ---
Reason for Exam: Screening (asymptomatic). Last mammogram was performed 2 year(s) and 4 month(s) ago. Patient History: Menarche at age 14. Patient has no children. Hysterectomy at age 37. Postmenopausal. Patient used Estrogen for 5 years. Risk Values: Sunshine 5 year model risk: 1.8%. NCI Lifetime model risk: 3.9%. Prior Study Comparison: 12/20/2016 Right Diagnostic Mammogram, [facility]. 04/19/2020 Bilateral Screening Mammogram, [facility]. 04/24/2022 Bilateral MG 3D screening mammo w/cad, [facility]. Tissue Density: The breasts are heterogeneously dense, which may obscure small masses. Findings: Analyzed By CAD. Right breast: There is no suspicious group of microcalcifications or new suspicious mass. Left breast: There is no suspicious group of microcalcifications or new suspicious mass. Overall Assessment: Negative, BI-RAD 1 Management: Screening Mammogram of both breasts in [address] [facility] will attempt to contact patient to return for supplemental views and ultrasound if indicated. Patient should continue monthly self-breast exams. A clinical breast exam by your physician is recommended on an annual basis. This exam should not preclude additional follow-up of suspicious palpable abnormalities. Note on Sunshine scores and lifetime risk: 1. A Sunshine score greater than 3% is considered moderate risk. If this is the case, consider specialist referral to assess eligibility for a risk reducing agent. 2. If overall lifetime risk for the development of breast cancer is 20% or higher, the patient may qualify for future screening with alternating mammogram and breast MRI. [facility], , 09/08/2024 3:32 PM. Electronically signed and approved by: Lobo Worley DO
--- NOTE | 2024-09-08 17:10 | CA ---
Transthoracic Echo Report Name: Sadia Kennedy Age: 74 Gender: F : 1950 Exam Date: 09/08/2024 14:52 Exam Location: [facility] Ht (in): 60 Wt (lb): 103 Ordering Physician: Urmila Moody DO Attending/Referring Phys: Card Clothier Mahnaz Garcia RDCS Procedure CPT: Indications: R94.31 Cardiac Hx: Technical Quality: Good Contrast 1: Total Dose (mL): Contrast 2: Total Dose (mL): MEASUREMENTS (Male / Female) Normal Values 2D ECHO LV Diastolic Diameter PLAX 4.5 cm 4.2 - 5.9 / 3.9 - 5.3 cm LV Systolic Diameter PLAX 2.6 cm IVS Diastolic Thickness 0.8 cm 0.6 - 1.0 / 0.6 - 0.9 cm LVPW Diastolic Thickness 0.8 cm 0.6 - 1.0 / 0.6 - 0.9 cm LV Relative Wall Thickness 0.3 RV Internal Dim ED PLAX 3.3 cm LA Systolic Diameter LX 3.4 cm 3.0 - 4.0 / 2.7 - 3.8 cm LV Diastolic Volume MOD 4C 72.6 cm??? LV Systolic Volume MOD 4C 30.9 cm??? LV Ejection Fraction MOD 4C 57.4 % LV Cardiac Index MOD 4C 2043.9 cm???/min???m??? LV Diastolic Length 4C 6.6 cm LV Systolic Length 4C 5.5 cm LV Diastolic Volume MOD 2C 46.7 cm??? LV Systolic Volume MOD 2C 12.3 cm??? LV Ejection Fraction MOD 2C 73.7 % LV Cardiac Index MOD 2C 1690.5 cm???/min???m??? LV Diastolic Length 2C 6.3 cm LV Systolic Length 2C 4.5 cm M-MODE Aortic Root Diameter MM 3.0 cm AV Cusp Separation MM 2.1 cm DOPPLER AV Peak Velocity 151.0 cm/s AV Peak Gradient 9.1 mmHg AI Peak Velocity 444.9 cm/s AI Peak Gradient 79.2 mmHg AI Pressure Half Time 525.7 ms Mitral E Point Velocity 71.8 cm/s Mitral A Point Velocity 103.1 cm/s Mitral E to A Ratio 0.7 MV Deceleration Time 156.0 ms MV E' Velocity 3.6 cm/s Mitral E to MV E' Ratio 20.1 TR Peak Velocity 223.1 cm/s TR Peak Gradient 19.9 mmHg Right Ventricular Systolic Press 30.0 mmHg FINDINGS Left Ventricle Left ventricular ejection fraction is estimated at 55-60 %. Left ventricular cavity size normal. Left ventricular wall thickness normal. Normal left ventricular wall motion. Right Ventricle Mild right ventricular dilatation. Right ventricular systolic pressure within normal limits. Right Atrium Normal right atrial size. No right atrial thrombus or mass seen. Left Atrium Normal left atrial size. No left atrial thrombus or mass present. Mitral Valve Structurally normal mitral valve. Mild mitral regurgitation. Aortic Valve Trileaflet aortic valve. No aortic stenosis. Mild aortic regurgitation. Tricuspid Valve Structurally normal tricuspid valve. Mild tricuspid regurgitation. Pulmonic Valve Structurally normal pulmonic valve. Trace to mild pulmonic regurgitation. Pericardium No pericardial effusion. Aorta Normal size aortic root and proximal ascending aorta. CONCLUSIONS Reason for test: Abnormal EKG Normal LV size and function Mildly enlarged right ventricle Structurally normal aortic valve Mild aortic regurgitation Previewed by: Dr. Thang Shore MD (Electronically Signed) Final Date: 08 Sep 2024 17:09
== END | disposition home or self-care (01) ==
LOC: RADMAMWWP 14:14
PROVIDERS: ATTEND Family Medicine
DX: Z12.31 Encounter for screening mammogram for malignant neoplasm of breast (principal); R92.333 Mammographic heterogeneous density, bilateral breasts; Z78.0 Asymptomatic menopausal state; R94.31 Abnormal electrocardiogram [ECG] [EKG]; I51.7 Cardiomegaly; I35.1 Nonrheumatic aortic (valve) insufficiency
CPT/HCPCS: 77063; 77067; 93306

== ENCOUNTER → 2024-11-21 | Outpatient (CLI) | payer MEDICARE ==
--- NOTE | 2024-11-21 17:14 | BD ---
EXAMINATION TYPE: Axial Bone Density DATE OF EXAM: 11/21/2024 CLINICAL HISTORY: 74 years old Female. ICD-10 CODE: N95.1 MENOPAUSAL AND FEMALE CLIM , Additional Hi story: Height: 59" Weight: 102lbs FRAX RISK QUESTIONS: Alcohol (3 or more units per day): No Family History (Parent hip fracture): Yes, father Glucocorticoids (More than 3mos): No (Ex: prednisone, prednisolone, methylprednisolone, dexamethasone, and hydrocortisone). History of Fracture in Adulthood: Yes Secondary Osteoporosis: 1. Type 1 Diabetes: No 2. Hyperthyroidism: No 3. Menopause before 45: Yes, Partial hysterectomy at age 35 4. Malnutrition: No 5. Chronic liver disease: No Rheumatoid Arthritis: No Current Tobacco Use: No RISK FACTORS HISTORY OF: Hip Fracture (Right/Left): No Spine Fracture: Crushing injury to T-spine, procedure to T10-11, per patient History of Wrist Fracture: No Surgery to Spine/Hip(right/left)/Wrist (right/left): No MEDICATIONS: Thyroid Medications: No Osteoporosis Medications: No EXAM MEASUREMENTS: Bone mineral densitometry was performed using the [employer] System. Bone mineral density as measured about the Lumbar spine is: ----- L1-L4(G/cm2): 0.899 T Score Values are as follows: ----- L1: -3.0 ----- L2: -2.5 ----- L3: -2.1 ----- L4: -2.1 ----- L1-L4: -2.3 Z Score Values are as follows: ----- L1: -0.6 ----- L2: -0.1 ----- L3: 0.2 ----- L4: 0.3 ----- L1-L4: 0.0 Bone mineral density has: decreased -2.8% since study of: 04/24/2022 Bone mineral density about the R hip (g/cm2): 0.812 Bone mineral density about the L hip (g/cm2): 0.828 T Score values are as follows: -----R Neck: -2.3 -----L Neck: -1.9 -----R Total: -1.5 -----L Total: -1.4 Z Score values are as follows: -----R Neck: 0.1 -----L Neck: 0.4 -----R Total: 0.7 -----L Total: 0.8 Bone mineral density has: decreased -2.3% since study of: 04/24/2022 FRAX%s: The graph provided illustrates a 35.5% chance for a major osteoporotic fx and a 22.9% chance for the hips probability for fx in 10 years time. IMPRESSION: Osteopenia (T Score between -2.5 and -1). There is slightly increased risk of fracture and the patient may be considered for treatment. Re-Screen 2-5 years. NOTE: T-SCORE=SD OF THE YOUNG ADULT MEAN. [facility], , 11/21/2024 5:12 PM
== END | disposition home or self-care (01) ==
LOC: RADBDWWP 10:29
PROVIDERS: ATTEND Family Medicine
DX: Z13.820 Encounter for screening for osteoporosis (principal); M85.89 Other specified disorders of bone density and structure, multiple sites; Z78.0 Asymptomatic menopausal state
CPT/HCPCS: 77080